=== PATIENT | female | born 1970 | race Caucasian/White ===

== ENCOUNTER 2021-07-28 08:22 | Emergency (ER) | payer BC, OTHER ==
[~2021-07-28] VITALS: Ht 177.8 cm; Wt 65.7 kg
[~2021-07-28 08:22] MED LIST: ACHD5005 PO; BUPR1PAT2 TD; CYCL10TA9 PO; HYDR-1231 PO; PRD20T PO
--- NOTE | 2021-07-28 09:14 | ED Lower Extremity ---
General Chief Complaint: Lower Extremity Stated Complaint: R FOOT PAIN Source: patient Exam Limitations: no limitations History of Present Illness Date Seen by Provider: July 28, 2021 Time Seen by Provider: 08:57 Initial Comments Patient is a 51yo female with a complaint of plantar foot pain. Onset over the last week after she has been doing an increased amount of walking. No direct trauma or falls. No fevers, chills. She states she can put a little pain down on her right heel to walk. Stepping out of bed first thin in the morning has been excruciating. SHe has been applying ice. SHe states she feels the foot and ankle are swollen. Denies knee, thigh or hip pain. Has never had anything like this before. All other ROS reviewed and neg except as stated. Onset: yesterday Severity: severe Pain/Injury Location: right heel Modifying Factors: Improves With Cold Therapy, Improves With Immobilization; Worse With Movement Allergies and Home Medications Allergies Coded Allergies: No Known Drug Allergies (Unverified , 05/11/13) Patient Home Medication List Home Medication List Reviewed: Yes Buprenorphine (Butrans) 1 Each Patch.tdwk, 1 EACH TD, (Reported) Entered as Reported by: FADY HEALY on 05/11/13 1154 Cyclobenzaprine Hcl (Cyclobenzaprine Hcl) 10 Mg Tablet, 1 EACH PO HS Prescribed by: BEATRIZ OLIVER on 05/11/13 1314 Hydrocodone Bit/Acetaminophen (Lortab 5 Mg Tablet) 1 Each Tablet, 1 EACH PO QID, (Reported) Entered as Reported by: FADY HEALY on 05/11/13 1154 Hydrocodone Bit/Acetaminophen (Hydrocodone-Apap 5-325 Tablet) 1 Tab Tablet, 1 TAB PO Q4H PRN for PAIN Prescribed by: BEATRIZ OLIVER on 05/11/13 1418 Hydrocodone/Acetaminophen (Hydrocodone-Acetamin 5-325 mg) 5 Mg-325 Mg Tablet, 1 TAB PO Q6H PRN for PAIN-MODERATE (5-7) Prescribed by: LINETTE ARMENTA on 07/28/21 0918 Prednisone (Prednisone) 20 Mg Tab, 40 MG PO DAILY Prescribed by: BEATRIZ OLIVER on 05/11/13 1418 Prednisone (Prednisone) 50 Mg Tab, 50 MG PO DAILY Prescribed by: LINETTE ARMENTA on 07/28/21 0917 Review of Systems Constitutional: see HPI EENTM: no symptoms reported Respiratory: no symptoms reported Cardiovascular: no symptoms reported Gastrointestinal: no symptoms reported Musculoskeletal: joint pain (right foot) Skin: no symptoms reported All Other Systems Reviewed Negative Unless Noted: Yes Past Ifgmpuo-Wjnxbg-Xvzcce Hx Past Medical History Chronic Back Pain Anxiety Physical Exam Vital Signs Vital Signs - First Documented 07/28/21 08:55 Temp 36.4 Pulse 86 Resp 13 B/P (MAP) 172/110 (130) Pulse Ox 98 O2 Delivery Room Air Capillary Refill : Height, Weight, BMI Height: 5'" Weight: 126lbs. oz. 57.447073sm; BMI Method:Stated General Appearance: WD/WN, mild distress HEENT: PERRL/EOMI Cardiovascular: regular rate, rhythm (2+ DP pulses right foot) Respiratory: no respiratory distress, no accessory muscle use Hips: bilateral hip non-tender, bilateral hip normal inspection, bilateral hip normal range of motion, bilateral hip no evidence of injury Legs: bilateral leg non-tender, bilateral leg normal inspection, bilateral leg normal range of motion, bilateral leg no evidence of injury Knees: bilateral knee non-tender, bilateral knee normal inspection, bilateral knee normal range of motion, bilateral knee no evidence of injury Ankles: bilateral ankle non-tender, bilateral ankle normal inspection, bilateral ankle normal range of motion, bilateral ankle no evidence of injury Feet: left foot non-tender, left foot normal inspection, left foot normal range of motion, left foot no evidence of injury; right foot limited range of motion, right foot pain (plantar fascia), right foot soft tissue tenderness, right foot swelling Neurologic/Tendon: normal sensation, normal motor functions Neurologic/Psychiatric: alert, normal mood/affect, oriented x 3 Skin: normal color, warm/dry Progress/Results/Core Measures Results/Orders My Orders Orders - LINETTE ARMENTA MD Prednisone Tablet (Deltasone Tablet) (07/28/21 09:15) Hydrocodone/Apap 7.5/325 Tab (Lortab 7. (07/28/21 09:15) Vital Signs/I&O 07/28/21 07/28/21 08:55 09:54 Temp 36.4 Pulse 86 88 Resp 13 16 B/P (MAP) 172/110 (130) 170/100 Pulse Ox 98 86 O2 Delivery Room Air Departure Impression Primary Impression: Plantar fasciitis Disposition: 01 HOME, SELF-CARE Condition: Stable Departure-Patient Inst. Decision time for Depature: 09:15 Referrals: NO,LOCAL PHYSICIAN (PCP) Primary Care Physician AMALIA AGUIRRE DPM Patient Instructions: Plantar Fasciitis Exercises Add. Discharge Instructions: Use a frozen water bottle multiple times a day and roll your foot over the top of it. You can take ibuprofen 600 mg every 6-8 hours with food as needed for pain. I have also written you a prescription for hydrocodone. Please take this only as needed. This medication can be extremely addicting. Always take stool softeners daily while taking pain medication. I have written you for a short course of steroids. You received your first dose today. You will take 1 tablet a day for the next 4 days. Try to do some gentle stretching exercises as outlined in the discharge instructions. I given you contact information for the local bleach boiler puller. He may have some other alternative therapies that can improve your symptoms. Return to the emergency department for any new, concerning or emergent complaints. Scripts Hydrocodone/Acetaminophen (Hydrocodone-Acetamin 5-325 mg) 5 Mg-325 Mg Tablet 1 TAB PO Q6H PRN for PAIN-MODERATE (5-7), #12 TAB Prov: LINETTE ARMENTA MD 07/28/21 Prednisone (Prednisone) 50 Mg Tab 50 MG PO DAILY, #4 TAB Prov: LINETTE ARMENTA MD 07/28/21 LINETTE ARMENTA MD July 28, 2021 09:14
[2021-07-28] MEDS ORDERED: predniSONE 20 MG TAB PO ONE (09:15)
[2021-07-28] MEDS ORDERED: HYDROcodone/APAP 7.5 MG/325 MG (LORTAB, LORCET PLUS) TABLET PO ONE (09:15)
[2021-07-28] MEDS ORDERED: PRD50T PO (09:17)
[2021-07-28] MEDS ORDERED: ACHD5005 PO (09:17)
[2021-07-28 09:54] VITALS: BP 170/100
== END 2021-07-28 09:54 | disposition home or self-care (01) ==
LOC: EDUNIT# 08:22 → ER 08:23
DX: M72.2 Plantar fascial fibromatosis (principal)
CPT/HCPCS: 99283

== ENCOUNTER → 2021-10-28 | Outpatient (CLI) | payer BC ==
[~2021-10-28] MED LIST changes: +PRD50T PO
--- NOTE | 2021-10-28 15:11 | Diagnostic Imaging Report ---
PROCEDURE: Pelvic comp/transvaginal sonogram. TECHNIQUE: Complete transabdominal and transvaginal pelvic ultrasound was performed. In addition, limited pelvic Doppler was performed. INDICATION: Enlarged uterus. Uterus is anteverted measuring 7.7 x 4.7 x 4.8 cm. Endometrium is 7 mm in thickness. There is some myometrial heterogeneity in the anterior uterus measuring 3.4 x 2.1 x 3.0 cm, perhaps a fibroid. Right ovary measures 2.7 x 2.2 x 2.0 cm. There is blood flow to the right ovary. Left ovary cannot be visualized. Small amount of fluid is noted posteriorly. IMPRESSION: Probable uterine fibroid. Nonvisualized left ovary. The study is otherwise unremarkable. Dictated by: Dictated on workstation # [id number]
--- NOTE | 2021-10-28 18:19 | Diagnostic Imaging Report ---
Indication: Routine screening. Comparison is made with prior mammogram 04/15/2012. 2-D and 3-D bilateral screening mammography was performed with CAD. Both breasts are heterogeneously dense, limiting the sensitivity of mammography. No mass or malignant-appearing microcalcifications are seen. Axillae are unremarkable. IMPRESSION: BI-RADS Category 1 No mammographic features suspicious for malignancy are identified. ACR BI-RADS Category 1: Negative. Result letter will be mailed to the patient. Note: At least 10% of breast cancer is not imaged by mammography. Dictated on workstation # [id number]
== END ==
LOC: RAD 13:00
PROVIDERS: ATTEND Surgery
DX: Z12.31 Encounter for screening mammogram for malignant neoplasm of breast (principal); N85.2 Hypertrophy of uterus
CPT/HCPCS: 76830; 76856; 77063; 77067

== ENCOUNTER → 2022-12-25 | Outpatient (CLI) | payer BC ==
--- NOTE | 2022-12-25 12:02 | Diagnostic Imaging Report ---
Indication: Routine screening. Comparison is made with prior mammogram from 10/28/2021. 2-D and 3-D bilateral screening mammography was performed with CAD. Both breasts are heterogeneously dense, limiting the sensitivity of mammography. A density in the outer right breast posterior depth appears more prominent than prior exam. This may be superiorly located on the MLO view. Additional views are recommended. Left breast is unremarkable. Axillae are unremarkable. No malignant-appearing microcalcifications are seen. IMPRESSION: BI-RADS 0 Right breast density. Additional views are recommended for further evaluation. ACR BI-RADS Category 0: Incomplete. (Needs additional imaging evaluation). Result letter will be mailed to the patient. Note: At least 10% of breast cancer is not imaged by mammography. Dictated by: Dictated on workstation # [id number]
== END ==
LOC: RAD 10:39
PROVIDERS: ATTEND Nurse Practitioner
DX: Z12.31 Encounter for screening mammogram for malignant neoplasm of breast (principal)
CPT/HCPCS: 77063; 77067

== ENCOUNTER → 2023-01-07 | Outpatient (CLI) | payer BC ==
--- NOTE | 2023-01-07 14:09 | Diagnostic Imaging Report ---
Ultrasound right breast INDICATION: Abnormal screening mammogram The recent screening mammogram performed on 12/25/2022 noted a density in the upper outer aspect of the right breast. This did seem more prominent than noted on the prior exam of 10/28/2021. The diagnostic mammogram performed prior study suggested that this finding was most likely a benign process. On this exam in the 10 o'clock position of the right breast at posterior depth there is a well-circumscribed 5 x 6 x 5 mm avascular hypoechoic lesion. I suspect that this does correspond to the finding of the screening and diagnostic mammograms. There does not seem to be any significant through transmission but this may represent a small cyst. This could also be related to a small lymph node although a fatty hilum is not visualized. I do feel be unlikely that this is neoplastic in nature. Even so, It may prove worthwhile to have a (short-term 6 month) follow-up mammogram and ultrasound exam for further study. Also, during the course exam a smaller 4.5 x 2 mm avascular hypoechoic lesion with a hyperechoic center was seen in the 9 o'clock position. This has the typical appearance of a small lymph node. There is no other abnormality in this area to suggest neoplastic disease. IMPRESSION: The small nodular density seen on mammogram is most likely a benign process. Recommendations as above. ACR BI-RADS Category 3: Probably benign findings. Result letter will be mailed to the patient. Note: At least 10% of breast cancer is not imaged by mammography. Dictated by: Dictated on workstation # [id number]
--- NOTE | 2023-01-07 17:43 | Diagnostic Imaging Report ---
3-D unilateral diagnostic right mammogram with CAD. The recent screening mammogram performed on 12/25/2022 noted a density in the upper outer aspect of the right breast. This did seem more prominent than on the prior exam of 10/28/2021. On the compression views of this area that finding is again evident. This finding has a fairly benign appearance with a smooth border. Even so, I would recommend that ultrasound be performed for further study. IMPRESSION: Ultrasound would be recommended for further evaluation of the density in the upper-outer quadrant of the right breast. ACR BI-RADS Category 0: Incomplete. (Needs additional imaging evaluation). Result letter will be mailed to the patient. Note: At least 10% of breast cancer is not imaged by mammography. Dictated by: Dictated on workstation # [id number]
== END ==
LOC: RAD 12:21
PROVIDERS: ATTEND Nurse Practitioner
DX: R92.30 Dense breasts, unspecified (principal)